=== PATIENT | female | born 1925 | race African-American/Black ===

== ENCOUNTER 2017-05-14 10:32 | Emergency (ER) | payer MEDICARE, OTHER ==
[~2017-05-14 10:32] MED LIST: ALBU6.7H INH; KCL10C PO; LASI20TA PO
[2017-05-14 10:45] VITALS: BP 167/81; PULSE 108; RESP 20; TEMP 100.1; O2SAT 78
[2017-05-14 10:52] VITALS: PULSE 103; RESP 22; TEMP 99.9; O2SAT 94
[2017-05-14 10:55] VITALS: BP 167/81; PULSE 103; RESP 22; TEMP 99.9; O2SAT 94
[2017-05-14] MEDS ORDERED: ALBUAER3 INH (10:58)
[2017-05-14] MEDS ORDERED: RESP: ALBUTEROL 2.5 MG/IPRATROPIUM 0.5 MG NEB (SCH) NEB ONE ×2 (11:00)
[2017-05-14] MEDS ORDERED: predniSONE 20 MG TAB PO SCH (11:00)
--- NOTE | 2017-05-14 11:00 | PD ---
HPI Chief Complaint: Fall Time Seen by Provider: 10:40 Travel History International Travel<30 days: No Contact w/Intl Traveler<30days: No Traveled to known affect area: No History of Present Illness HPI This patient is brought in by her son to evaluate her right knee pain. Last night he was helping her to the bathroom and she stumbled and fell onto the right knee. She complains of some discomfort when walking. She has been able to put weight on it. No head injury. She also has chronic COPD and is oxygen dependent on 3 L. She recently quit smoking. She has dementia. She denies shortness of breath. Symptoms severity is moderate. No alleviating factors. Duration one day PFSH Past Medical History Arthritis: Yes COPD: Yes Dementia: Yes Diminished Hearing: No Genitourinary: Yes (incon of urine) Immunizations Current: Yes ?: Not Menopausal: Yes Past Surgical History Tonsillectomy: Yes Other Surgery: Yes (bilat ankle/feet ? surgery ) Social History Alcohol Use: No Tobacco Use: No (70 PACK YEAR HISTORY) Substance Use: No Allergies-Medications (Allergen,Severity, Reaction): Coded Allergies: No Known Allergies (Unverified , 05/14/17) Reported Meds & Prescriptions Reported Meds & Active Scripts Active Reported Proair Hfa 8.5 GM Inh (Albuterol Sulfate) 90 Mcg/Act Aer 2 Puff INH Q4-6H PRN 108 mcg/actuation Review of Systems General / Constitutional: No: Fever Eyes: No: Visual changes HENT: No: Headaches Cardiovascular: No: Chest Pain or Discomfort Respiratory: Positive: Wheezing Gastrointestinal: No: Abdominal Pain Genitourinary: No: Dysuria Musculoskeletal: Positive: Pain Skin: No Rash Neurologic: No: Weakness Psychiatric: No: Depression Endocrine: No: Polydipsia Hematologic/Lymphatic: No: Easy Bruising Physical Exam Narrative GENERAL: Well-nourished, well-developed patient in no apparent distress. SKIN: Focused skin assessment reveals no rash and nodules. Skin is Warm and dry. HEAD: Atraumatic. Normocephalic. EYES: Pupils equal and round. No scleral icterus. No injection or drainage. ENT: No nasal bleeding or discharge. Mucous membranes pink and moist. NECK: Trachea midline. No JVD. CARDIOVASCULAR: Regular rate and rhythm. No murmur appreciated. RESPIRATORY: No accessory muscle use. Some expiratory wheezing noted diffusely. Breath sounds equal bilaterally. No crackles GASTROINTESTINAL: Abdomen soft, non-tender, nondistended. Hepatic and splenic margins not palpable. MUSCULOSKELETAL: No obvious deformities. No clubbing. No cyanosis. No pitting edema. No erythema or effusion or ecchymosis of the knee. No specific point tenderness NEUROLOGICAL: Awake and alert. No obvious cranial nerve deficits. Motor grossly within normal limits. Normal speech. PSYCHIATRIC: Appropriate mood and affect; insight and judgment reduced from dementia. Data Data Last Documented VS Vital Signs Date Time Temp Pulse Resp B/P Pulse Ox O2 Delivery O2 Flow Rate FiO2 05/14/17 10:55 99.9 103 22 167/81 94 Nasal Cannula 3 Orders Knee, Complete (4vws) (05/14/17 ) Chest, Single Ap (05/14/17 ) Prednisone (Deltasone) (05/14/17 11:00) Albuterol-Ipratropium Neb (Duoneb Neb) (05/14/17 11:00) Albuterol-Ipratropium Neb (Duoneb Neb) (05/14/17 11:00) MDM Medical Decision Making Medical Screen Exam Complete: Yes Emergency Medical Condition: Yes Medical Record Reviewed: Yes Differential Diagnosis Fracture, dislocation, contusion, COPD, pneumonia, bronchitis Narrative Course I have reviewed the patient's electronic medical record. I reviewed her right knee x-rays which show some arthritic change but no fracture or effusion I reviewed her chest x-ray. I reviewed the radiologist reading mentioning possible thoracic aneurysmal change. I compared it to the one done 14 months ago. It looks very similar. I discussed this at length with son at bedside. They will discuss it with her primary physician but I don't think any emergent CT with contrast is indicated at this time. Patient has no chest pain and is very stable I gave her a series of nebulizer treatments and a dose of prednisone Saturations are 96% on her nasal cannula Diagnosis Primary Impression: Contusion of right knee, initial encounter Additional Impression: COPD exacerbation Additional Instructions: The patient was advised to follow up with their physician and return if they worsen. Med/Other Pt SpecificInfo: Other Disposition: 01 DISCHARGE HOME Condition: Stable Ian King MD May 14, 2017 11:00
--- NOTE | 2017-05-14 11:51 | RADRPT ---
EXAM DATE/TIME: 05/14/2017 11:22 [facility] COMPARISON: CHEST SINGLE AP, January 20, 2016, 12:15. INDICATIONS : Wheezing. MEDICAL HISTORY : Dementia. Chronic obstructive pulmonary disease. Arthritis. Cataracts. Bilateral lower extremity tirso a.Smoker. SURGICAL HISTORY : Tonsillectomy. Incision and drainage of sebaceous cyst. ENCOUNTER: Initial ACUITY: 1 day PAIN SCORE: 0/10 LOCATION: chest FINDINGS: Single portable frontal view of the chest shows mild cardiomegaly. There is calcified and I suspect t here is aneurysmal change of the thoracic aorta. Lungs are clear. Linear scarring within the lingula is stable. No effusions. Bony structures are unremarkable. CONCLUSION: 1. No acute intrathoracic process. 2. Suspected thoracic aortic aneurysm. CTA of the chest could be performed to further evaluate. 3. Mild cardiomegaly. Elijah Watson Jr., MD on May 14, 2017 at 11:48 Board Certified Radiologist. This report was verified electronically.
--- NOTE | 2017-05-14 11:54 | RADRPT ---
EXAM DATE/TIME: 05/14/2017 11:26 [facility] COMPARISON: No previous studies available for comparison. INDICATIONS : Right knee pain post fall. MEDICAL HISTORY : Dementia. Chronic obstructive pulmonary disease. Arthritis. Cataracts. Bilateral lower extremity tirso a. Smoker SURGICAL HISTORY : Tonsillectomy. Incision and drainage of sebaceous cyst. ENCOUNTER: Initial ACUITY: 1 day PAIN SCORE: 6/10 LOCATION: Right knee FINDINGS: The bones are osteoporotic. There is no joint effusion. Degenerative changes are present in the med ial compartment. There is no fracture. CONCLUSION: Degenerative changes medial compartment without fracture. Simone Perez MD FACR on May 14, 2017 at 11:52 Board Certified Radiologist. This report was verified electronically.
[2017-05-14 12:11] VITALS: BP 127/58; PULSE 96; RESP 20; TEMP 98.4; O2SAT 94
== END 2017-05-14 12:31 | disposition home or self-care (01) ==
LOC: PHED 10:32
DX: S80.01XA Contusion of right knee, initial encounter (principal); J44.1 Chronic obstructive pulmonary disease with (acute) exacerbation; F03.90 Unspecified dementia, unspecified severity, without behavioral disturbance, psychotic disturbance, mood disturbance, and anxiety; Z99.81 Dependence on supplemental oxygen; Z87.09 Personal history of other diseases of the respiratory system; Z87.39 Personal history of other diseases of the musculoskeletal system and connective tissue; Z87.448 Personal history of other diseases of urinary system; Z87.891 Personal history of nicotine dependence; W01.0XXA Fall on same level from slipping, tripping and stumbling without subsequent striking against object, initial encounter; Y92.002 Bathroom of unspecified non-institutional (private) residence as the place of occurrence of the external cause
CPT/HCPCS: 71010; 73564; 94640; 94664; 99284; J7512

== ENCOUNTER 2017-06-21 20:23 | Emergency (ER) | payer MEDICARE, OTHER ==
[~2017-06-21 20:23] MED LIST changes: -ALBU6.7H INH; +ALBUAER3 INH; -KCL10C PO; -LASI20TA PO
[2017-06-21 21:01] VITALS: BP 135/80; PULSE 95; RESP 18; TEMP 98.2; O2SAT 98
[2017-06-22 05:00] VITALS: BP 142/76; PULSE 86; RESP 18; O2SAT 94
== END 2017-06-22 10:00 | disposition left against medical advice (07) ==
LOC: PHED 20:23
DX: Z76.89 Persons encountering health services in other specified circumstances (principal)
CPT/HCPCS: 99281